=== PATIENT | male | born 1960 | race Caucasian/White ===

== ENCOUNTER 2021-06-16 21:40 | Emergency (ER) | payer BC, OTHER, SELFPAY ==
[~2021-06-16] VITALS: Ht 175.3 cm; Wt 140.0 kg
--- NOTE | 2021-06-16 22:00 | NUR ---
COVID SWAB COLLECTED IN TRIAGE EKG COMPLETED IN TRIAGE
[2021-06-16 22:50] LABS: BASOPHILS % (AUTO) 0 % (0-1); EOSINOPHILS % (AUTO) 1 % (1-7); LYMPHOCYTES % (AUTO) 27 % (22-44); MEAN CORPUSCULAR HEMOGLOBIN 30.7 pg (27.5-34.5); MEAN CORPUSCULAR HGB CONC 35.1 g/dL (33.2-36.2); MEAN PLATELET VOLUME 7.2 fL (7.4-10.4); MONOCYTES % (AUTO) 8 % (2-9); NEUTROPHILS % (AUTO) 64 % (42-75); PLATELET COUNT 138 x10^3/uL (130-400); RED BLOOD COUNT 4.55 x10^6/uL (4.38-5.82)
[2021-06-16 23:00] LABS: ALBUMIN 3.5 g/dL (3.4-5.0); ANION GAP 2 mmol/L (5-15); CALCIUM 8.5 mg/dL (8.5-10.1); CHLORIDE 100 mmol/L (98-107); CREATININE 1.06 mg/dL (0.7-1.3)
[2021-06-16 23:03] LABS: TROPONIN I < 0.015 ng/mL (0.000-0.045)
[2021-06-17] MEDS ORDERED: ALBUTEROL SULFATE 2.5 MG/3 ML ONE (00:51)
[2021-06-17] MEDS ORDERED: ALBUTEROL SULFATE 2.5 MG/3 ML NPPB ONE (01:00)
[2021-06-17] MEDS ORDERED: PLEASE ENTER ALLERGIES MC SCH (01:00)
[2021-06-17 01:12] VITALS: BP 105/62
== END 2021-06-17 01:22 | disposition home or self-care (01) ==
LOC: ED 06-17 01:10
DX: B34.9 Viral infection, unspecified (principal); J98.01 Acute bronchospasm; Z20.822 Contact with and (suspected) exposure to COVID-19
CPT/HCPCS: 36415; 71045; 80048; 82040; 84484; 85025; 93005; 94640; 99285; J7613; U0003; U0005